=== PATIENT | female | born 1970 | race Caucasian/White ===

== ENCOUNTER 2018-10-27 18:05 | Emergency (ER) | payer SELFPAY ==
[~2018-10-27] VITALS: Ht 160 cm; Wt 61.2 kg
--- OUTSIDE RECORDS SUMMARY | 2018-10-27 18:08 | XMS ---
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 Shereen has no Care Guidelines for this patient. Niki VISIT COUNT (12 MO.) 1 OM[facility] [place] TOTAL 1 NOTE: Visits indicate total known visits. ED/UCC VISIT TRACKING (12 MO.) 10/27/2018 18:05 [facility] [place] TYPE: Emergency COMPLAINT: - FOOT PAIN INPATIENT VISIT TRACKING (12 MO.) No inpatient visits to display in this time frame [email or web address]
== END 2018-10-27 18:35 | disposition home or self-care (01) ==
LOC: ED 18:05
DX: T69.022A Immersion foot, left foot, initial encounter (principal); T69.021A Immersion foot, right foot, initial encounter; F17.200 Nicotine dependence, unspecified, uncomplicated; Z90.49 Acquired absence of other specified parts of digestive tract; Z88.0 Allergy status to penicillin; Z88.5 Allergy status to narcotic agent
CPT/HCPCS: 99283